=== PATIENT | female | born 1985 | race Two or more races ===

== ENCOUNTER 2016-10-16 13:52 | Emergency (ER) | payer OTHER ==
[~2016-10-16] VITALS: Ht 165.1 cm; Wt 45.4 kg
[2016-10-16 14:00] VITALS: BP 115/74
[2016-10-16] MEDS ORDERED: ACETAMINOPHEN ES 500 MG TABLET ONE (14:05)
--- NOTE | 2016-10-16 14:07 | NUR ---
[facility] [employer] FOR CLEARANCE PRIOR TO BOOKING
[2016-10-16] MEDS ORDERED: ACETAMINOPHEN ES 500 MG TABLET PO ONE (14:30)
--- NOTE | 2016-10-16 14:57 | NUR ---
Patient discharged to [employer] [facility] in stable condition. Written and verbal after care instructions given. Patient verbalizes understanding of instruction.
== END 2016-10-16 14:58 ==
LOC: ER 13:58
DX: S00.33XA Contusion of nose, initial encounter (principal); S60.221A Contusion of right hand, initial encounter; Y04.0XXA Assault by unarmed brawl or fight, initial encounter; Y92.89 Other specified places as the place of occurrence of the external cause; Y93.89 Activity, other specified; Y99.8 Other external cause status
CPT/HCPCS: 73130-TC; A4606; Z7610